=== PATIENT | male | born 1990 | race Caucasian/White ===

== ENCOUNTER 2023-11-17 18:47 | Emergency (ER) | payer MEDICAID ==
[~2023-11-17] VITALS: Ht 172.7 cm; Wt 108.9 kg
[2023-11-17 19:03] VITALS: BP_SYST 134; PULSE 84; RESP 18; TEMP 98.7; O2SAT 97
[2023-11-17 19:10] VITALS: BP_SYST 134; PULSE 84; RESP 18; TEMP 98.7; O2SAT 97
== END 2023-11-17 19:35 | disposition home or self-care (01) ==
LOC: SED 18:47
DX: Z11.1 Encounter for screening for respiratory tuberculosis (principal)
CPT/HCPCS: 71045; 99283